=== PATIENT | male | born 1995 | race Hispanic/Latino ===

== ENCOUNTER 2018-10-28 15:59 | Emergency (ER) | payer SELFPAY ==
[~2018-10-28] VITALS: Ht 172.7 cm; Wt 63.5 kg
[~2018-10-28 15:59] MED LIST: OMEPRAZOLE40 MG PO
--- OUTSIDE RECORDS SUMMARY | 2018-10-28 16:02 | XMS REPORT | Clinical Summary ---
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 Allergies No Known Allergies Medications No known medications Active Problems Problem Noted Date Scoliosis 01/01/2009 Exercise-induced asthma 07/18/2007 Allergic rhinitis Encounters Care Team Description Date Type Specialty Niranjan Martinez MD Preventative health care (Primary Dx) 05/27/2018 Office Visit Family Practice Niranjan Martinez MD Preventative health care 05/27/2018 Orders Only Family Practice after 10/27/2017 Immunizations Name Dates Previously Given Next Due DTP Diphtheria, Tetanus, 10/26/1999, 07/29/1997, 03/24/1996, 01/22/1996, Pertussis Vaccine 1995 Hepatitis A Vaccine 08/21/2002, 02/18/2002 Hepatitis B Vaccine 08/21/2002, 03/21/2002, 02/18/2002 MCV4 Meningococcal 01/22/2009 Conjugate (Menactra) MMR Measles, Mumps, 08/09/1999 Rubella Vaccine Measles only 12/08/1997 PPD 05/04/2005 Polio OPV 12/07/1999, 03/07/1999, 01/21/1996, 1995 TDap (Tetanus Toxoid, 05/27/2018 (Deferred: Other - too soon to give) Reduced Diphtheria Toxoid And Acellular Pertussis, Absorbed) Tdap Tetanus, diphtheria, 01/22/2009 acellular pertussis Vaccine Family History Medical History Relation Name Comments Asthma Brother Arthritis Maternal Grandmother Hypertension Maternal Grandmother Relation Name Status Comments Brother Alive Brother Father Alive Maternal Grandfather Alive Maternal Grandmother Alive Mother Alive Social History Date Tobacco Use Types Packs/Day Years Used Never Smoker Smokeless Tobacco: Never Used Tobacco Cessation: Counseling Given: No Alcohol Use Drinks/Week oz/Week Comments No Sex Assigned at Date Recorded Not on file Industry Job Start Date Occupation Not on file Not on file Not on file Travel End Travel History Travel Start No recent travel history available. Last Filed Vital Signs Time Taken Vital Sign Reading 05/27/2018 2:31 PM CDT Blood Pressure 116/58 05/27/2018 2:31 PM CDT Pulse 74 05/27/2018 2:31 PM CDT Temperature 37.1 C (98.8 F) 05/27/2018 2:31 PM CDT Respiratory Rate 20 - Oxygen Saturation - - Inhaled Oxygen - Concentration 05/27/2018 2:31 PM CDT Weight 66.1 kg (145 lb 12.8 oz) 05/27/2018 2:31 PM CDT Height 172.7 cm (5' 8") 05/27/2018 2:31 PM CDT Body Mass Index 22.17 Plan of Treatment Health Maintenance Due Date Last Done Comments IMM Influenza Seasonal 07/15/2018Jul to December (>/=19 yrs) Procedures Comments Procedure Name Priority Date/Time Associated Diagnosis TSH Routine 05/27/2018 Preventative health care 4:37 PM CDT HIV-1/HIV-2 ROUTINE Routine 05/27/2018 Preventative health care SCREENING 4:37 PM CDT HEPATITIS PANEL Routine 05/27/2018 Preventative health care 4:37 PM CDT HEMOGLOBIN A1C Routine 05/27/2018 Preventative health care 4:37 PM CDT COMPREHENSIVE METABOLIC Routine 05/27/2018 Preventative health care PANEL(DBIL NOT INCLUDED) 4:37 PM CDT CBC/DIFF Routine 05/27/2018 Preventative health care 4:37 PM CDT after 10/27/2017 Results * HIV-1/HIV-2 ROUTINE SCREENING (05/27/2018 4:37 PM CDT) HIV-1/HIV-2 Negative NEG BT MAIN-STATION 3 Performing Organization Address City/State/Zipcode Phone Number [facility] * HEMOGLOBIN A1C (05/27/2018 4:37 PM CDT) Hemoglobin A1c 4.9 4.3 - 6.1 % [facility] Est Average 93.9 mg/dL [facility] Gluc Specimen Blood Performing Organization Address [facility] Phone [facility] * COMPREHENSIVE METABOLIC PANEL(DBIL NOT INCLUDED) (05/27/2018 4:37 PM CDT) Albumin 5.0 4.2 - 5.5 g/dL BT [facility]IN-[facility] 1 Calcium 10.0 8.6 - 10.3 mg/dL BT [facility] 1 CO2 24 21 - 31 mmol/L BT [facility] 1 Chloride 107 98 - 107 mmol/L BT [facility] 1 Creatinine 0.80 0.7 - 1.3 mg/dL BT [facility] 1 Glucose 76 70 - 110 mg/dL BT [facility] 1 Alk Phos 99 34 - 104 U/L BT [facility] 1 Potassium 4.6 3.5 - 5.1 mmol/L BT MA[facility] 1 Sodium 141 136 - 145 mmol/L BT MA[facility] 1 ALT 18 7 - 52 U/L BT MAIN-[facility] 1 AST 23 13 - 39 U/L BT MAIN[facility] 1 Urea Nitrogen 20 7 - 25 mg/dL BT [facility] 1 T Bilirubin 1.6 (H) 0.2 - 1.2 mg/dL BT MA[facility] 1 T Protein 7.6 6.0 - 8.3 g/dL BT MAIN-[facility] 1 GFR, Estimated >60 mL/min/1.73 m2 BT MAIN-[facility] 1 GFR, Estim, >60 mL/min/1.73 m2 BT [facility] Afr-Am 1 Anion Gap 10 BT MAIN-[facility]ATION 1 Specimen Blood Performing Organization Address [facility] [place] [place] Phone Number [facility] 1 * TSH (05/27/2018 4:37 PM CDT) TSH 1.12 0.57 - 3.74 uIU/mL BT MAIN-STATION 1 Specimen Blood Performing Organization Address [facility] [place] [place] Phone Number [facility] 1 * HEPATITIS PANEL (05/27/2018 4:37 PM CDT) HCV IgG Negative NEG BT MAIN-STATION 3 HBsAg Negative NEG BT MAIN-STATION 3 HAV, IgM Negative NEG BT MAIN-STATION 3 HBcAb, IgM Negative NEG BT MAIN-STATION 3 Specimen Blood Performing Organization Address [facility]/Zipcode Phone Number [facility] BT [facility] 3 * CBC/DIFF (05/27/2018 4:37 PM CDT) WBC 7.0 4.5 - 12.0 K/uL BT MAIN-STATION 2 RBC 5.14 4.60 - 6.20 M/uL BT MAIN-STATION 2 Hemoglobin 15.9 14.0 - 18.0 g/dL BT MAIN-[facility]ATION 2 Hematocrit 47.0 40.0 - 54.0 % BT MAIN-[facility]ATION 2 MCV 91 82 - 92 fL BT MAIN-STATION 2 MCH 30.9 27.0 - 31.0 pg BT MAIN-STATION 2 MCHC 33.8 32.0 - 36.0 g/dL BT MAIN-[facility]ATION 2 RDW 43.4 35.1 - 43.9 fL BT MAIN-STATION 2 Platelet 278 150 - 400 K/uL BT MAIN-STATION 2 Mean Platelet 10.2 9.4 - 12.4 fL BT MAIN-STATION Volume 2 Percent NRBC 0.0 BT MAIN-STATION 2 Absolute NRBC 0.00 BT MAIN-STATION 2 Neutrophil 57.1 34.0 - 67.9 % BT MAIN-STATION 2 Lymphocyte 30.7 21.8 - 50.0 % BT MAIN-STATION 2 Monocyte 9.6 5.3 - 12.0 % BT MAIN-STATION 2 Eosinophil 1.3 0.8 - 5.0 % BT MAIN-STATION 2 Basophil 1.0 0.2 - 1.2 % BT MAIN-STATION 2 Pct Immat Gran 0.3 0.0 - 0.5 BT MAIN-STATION 2 Neutrophil, Abs 4.01 1.78 - 5.36 K/uL BT MAIN-STATION 2 Lymphocyte, Abs 2.15 1.32 - 3.57 K/uL BT MAIN-STATION 2 Monocyte, Abs 0.67 0.30 - 0.82 K/uL BT MAIN-STATION 2 Eosinophil, Abs 0.09 0.04 - 0.54 K/uL BT MAIN-STATION 2 Basophil, Abs 0.07 0.01 - 0.08 K/uL BT MAIN-STATION 2 Absol Immat 0.02 0.00 - 0.03 K/uL BT MAIN-STATION Gran 2 Specimen Blood Performing Organization Address City/State/Zipcode Phone Number [facility] 2 after 10/27/2017
--- OUTSIDE RECORDS SUMMARY | 2018-10-28 16:02 | XMS REPORT ---
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 Allergies, Adverse Reactions, Alerts This patient has no known allergies or adverse reactions. Medications This patient has no known medications. Encounters Start Date/Time End Date/Time Encounter Type Admission Type Attending Clinicians Care Facility Care Department Encounter ID 2018-05-27 16:38:55 2018-05-27 16:38:55 Outpatient [facility] [id number] 2018-05-27 14:30:24 2018-05-27 14:30:24 Outpatient [facility] [id number]
== END 2018-10-28 16:30 | disposition left against medical advice (07) ==
LOC: ER 15:59
DX: R20.0 Anesthesia of skin (principal)

== ENCOUNTER 2018-10-29 15:44 | Emergency (ER) | payer OTHER ==
[~2018-10-29] VITALS: Ht 172.7 cm; Wt 63.5 kg
--- OUTSIDE RECORDS SUMMARY | 2018-10-29 15:48 | XMS REPORT | Clinical Summary ---
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 Unavailable Allergies No Known Allergies Medications No known medications Active Problems Problem Noted Date Scoliosis 01/01/2009 Exercise-induced asthma 07/18/2007 Allergic rhinitis Encounters Care Team Description Date Type Specialty Niranjan Martinez MD Preventative health care (Primary Dx) 05/27/2018 Office Visit Family Practice Niranjan Martinez MD Preventative health care 05/27/2018 Orders Only Family Practice after 10/28/2017 Immunizations Name Dates Previously Given Next Due [...] Preventative health care 4:37 PM CDT after 10/28/2017 Results * HIV-1/HIV-2 ROUTINE SCREENING (05/27/2018 4:37 PM CDT) HIV-1/HIV-2 Negative NEG BT MAIN-STATION 3 Performing Organization Address City/State/Zipcode Phone Number [facility] 3 * HEMOGLOBIN A1C (05/27/2018 4:37 PM CDT) Hemoglobin A1c 4.9 4.3 - 6.1 % [facility] Est Average 93.9 mg/dL [facility] Gluc Specimen Blood Performing Organization Address [facility] Phone Number [facility] * COMPREHENSIVE [...] MAIN-STATION 1 Specimen Blood Performing Organization Address [facility] [place] Phone Number [facility] 1 * TSH (05/27/2018 4:37 PM CDT) TSH 1.12 0.57 - 3.74 uIU/mL BT MAIN-STATION 1 Specimen Blood Performing Organization Address [facility] [place] Phone Number [facility] 1 * HEPATITIS PANEL (05/27/2018 4:37 PM CDT) HCV IgG Negative NEG BT MAIN-STATION 3 HBsAg Negative NEG BT MAIN-STATION 3 HAV, IgM Negative NEG BT MAIN-STATION 3 HBcAb, IgM Negative NEG BT MAIN-STATION 3 Specimen Blood Performing Organization Address [facility]/Zipcode Phone Number [facility] BT [facility] 3 * [...] Phone Number [facility] 2 after 10/28/2017
[2018-10-29] MEDS ORDERED: SODIUM CHLORIDE 0.9% 1000ML 1,000 ML IV STA (16:02)
[2018-10-29 17:02] LABS: AMPHETAMINES SCREEN,URINE NEGATIVE (NEGATIVE); BENZODIAZEPINES SCREEN,URINE NEGATIVE (NEGATIVE); PHENCYCLIDINE SCREEN,URINE NEGATIVE (NEGATIVE)
[2018-10-29 17:05] LABS: CLARITY,URINE CLEAR (CLEAR); COLOR,URINE YELLOW (YELLOW); KETONES,URINE NEGATIVE (NEGATIVE); LEUKOCYTE ESTERASE ,URINE NEGATIVE (NEGATIVE); NITRITE,URINE NEGATIVE (NEGATIVE); PROTEIN,URINE DIPSTICK NEGATIVE (NEGATIVE)
[2018-10-29 17:12] LABS: MUCUS,URINE MODERATE (RARE)
[2018-10-29 17:13] LABS: BILIRUBIN,URINE NEGATIVE (NEGATIVE); URINE UROBILINOGEN 0.2 mg/dL (0.2 - 1)
[2018-10-29 17:45] LABS: BASOPHILS % 0.3 % (0.0-1.0); EOSINOPHILS % 0.3 % (0.0-6.0); HEMATOCRIT 45.3 % (38.2-49.6); LYMPHOCYTES # (AUTO) 1.3 (1.0-3.2); MEAN CORPUSCULAR HEMOGLOBIN 31.1 pg (28-32); MEAN CORPUSCULAR HGB CONC 35.3 g/dL (31-35); MONOCYTES # (AUTO) 0.6 (0.2-0.8); MONOCYTES % 5.5 % (4.4-11.3); NEUTROPHILS # (AUTO) 9.5 (2.1-6.9); NEUTROPHILS % 82.6 % (38.7-80.0); PLATELET COUNT 292 x10e3/uL (140-360); RED BLOOD COUNT 5.15 x10e6/uL (4.3-5.7); RED CELL DISTRIBUTION WIDTH 12.8 % (11.7-14.4)
[2018-10-29 18:03] LABS: ALANINE AMINOTRANSFERASE 19 IU/L (0-55); ALBUMIN 5.1 g/dL (3.5-5.0); ALBUMIN/GLOBULIN RATIO 1.9 (0.8-2.0); ALKALINE PHOSPHATASE 96 IU/L (40-150); ANION GAP 17.7 mmol/L (8-16); BLOOD UREA NITROGEN 16 mg/dL (7-26); BUN/CREATININE RATIO 17 (6-25); CALCIUM 9.6 mg/dL (8.4-10.2); CARBON DIOXIDE 19 mmol/L (22-29); CHLORIDE 106 mmol/L (98-107); CREATINE KINASE 140 IU/L (30-200); CREATININE, SERUM 0.92 mg/dL (0.72-1.25); EST GLOMERULAR FILTRATION RATE > 60 ML/MIN (60-); GLUCOSE 84 mg/dL (74-118); POTASSIUM 3.7 mmol/L (3.5-5.1); SODIUM 139 mmol/L (136-145)
[2018-10-29 19:15] VITALS: BP 144/78
== END 2018-10-29 19:10 | disposition home or self-care (01) ==
LOC: ER 15:44
DX: M62.838 Other muscle spasm (principal)
CPT/HCPCS: 36415; 80053; 80307; 81001; 82550; 82553; 84484; 85025; 99283; J7030